=== PATIENT | male | born 1955 | race Asian ===

== ENCOUNTER 2018-10-23 17:45 | Inpatient (IN) | payer OTHER, MEDICAID ==
[~2018-10-23] VITALS: Ht 172.7 cm; Wt 74.8 kg
[2018-10-23 17:45] VITALS: BP_SYST 173
[2018-10-23] MEDS ORDERED: NACL 0.9% 1,000 ML IV ONE (17:54)
[2018-10-23] MEDS ORDERED: cefTRIAXone 1 GM IVPB PREMIX 50 ML IV ONE (18:00)
[2018-10-23] MEDS ORDERED: NS 1000 ML IV.SOLN IV ONE (18:00)
[2018-10-23] MEDS ORDERED: ALBUTEROL SULFATE 0.083% 2.5 MG/3 ML VIAL.NEB IH ONE ×2 (18:00→18:15)
[2018-10-23] MEDS ORDERED: methylPREDNISolone SOD SUCC/PF 62.5 MG/ML VIAL IVP ONE (18:00)
[2018-10-23] MEDS ORDERED: IPRATROPIUM BROM 0.5 MG/2.5 ML VIAL.NEB (ATROVENT) IH ONE ×2 (18:00→18:15)
[2018-10-23] MEDS ORDERED: HYDR-4272 PO (18:25)
[2018-10-23 18:38] LABS: EOSINOPHILS # (AUTO) 0.6 K/uL (0.0-0.4); EOSINOPHILS % (AUTO) 2.7 % (0.0-4.0); HEMOGLOBIN 11.3 g/dL (14.0-18.0); MEAN CORPUSCULAR HEMOGLOBIN 28 pg (27-31); MEAN CORPUSCULAR HGB CONC 33 % (32-36)
[2018-10-23] MEDS ORDERED: LORA-258 PO (18:38)
[2018-10-23] MEDS ORDERED: IPRA3AMP9 INH (18:38)
[2018-10-23] MEDS ORDERED: METO-290 PO (18:38)
[2018-10-23] MEDS ORDERED: PRO40 PO (18:38)
[2018-10-23] MEDS ORDERED: DOCU-144 PO (18:38)
[2018-10-23] MEDS ORDERED: MEGE400O23 PO (18:38)
[2018-10-23] MEDS ORDERED: ZOLP5TAB2 PO (18:38)
[2018-10-23] MEDS ORDERED: FERR-69 PO (18:40)
[2018-10-23 18:43] LABS: BASOPHILS # (AUTO) 0.3 K/uL (0.0-0.2); BASOPHILS % (AUTO) 1.3 % (0.0-2.0); HEMATOCRIT 34.6 % (36-54); LYMPHOCYTES # (AUTO) 4.2 K/uL (1.0-5.5); LYMPHOCYTES % (AUTO) 19.7 % (20.5-51.5); MEAN CORPUSCULAR VOLUME 87 fL (79.0-98.0); MONOCYTES # (AUTO) 1.3 K/uL (0.0-1.0); MONOCYTES % (AUTO) 6.3 % (1.7-9.3); NEUTROPHILS # (AUTO) 14.8 K/uL (1.8-7.7); PLATELET COUNT (AUTO) 322 K/uL (130-430); RED BLOOD CELL COUNT(AUTO) 3.99 MIL/uL (4.2-6.2); RED CELL DISTRIBUTION WIDTH 19.6 % (9.0-15.0); WHITE BLOOD COUNT (AUTO) 21.2 K/uL (4.8-10.8)
[2018-10-23] MEDS ORDERED: CARV3.1246 PO (18:47)
[2018-10-23] MEDS ORDERED: NEPH PO (18:47)
[2018-10-23] MEDS ORDERED: ATOR20TA64 PO (18:47)
[2018-10-23] MEDS ORDERED: ASPI-1153 PO (18:47)
[2018-10-23] MEDS ORDERED: SUCR1TAB78 PO (18:47)
[2018-10-23] MEDS ORDERED: CALC667T5 PO (18:47)
[2018-10-23] MEDS ORDERED: MIRT15TA7 PO (18:47)
[2018-10-23 18:48] LABS: PROTHROMBIN TIME 9.9 SECS (9.5-12.5)
[2018-10-23] MEDS ORDERED: SSREG SUBCUT (18:50)
[2018-10-23 18:57] LABS: CREATININE 7.04 mg/dL (0.55-1.30); POTASSIUM 5.2 mmol/L (3.5-5.1)
[2018-10-23 19:01] LABS: ALBUMIN 2.6 g/dL (3.4-4.8); TOTAL BILIRUBIN 0.5 mg/dL (0.0-1.0)
[2018-10-23 20:00] VITALS: BP_SYST 148
[2018-10-23 20:03] VITALS: BP_SYST 148
[2018-10-23] MEDS ORDERED: MORPHINE 4 MG/ML INJ. SYRINGE IVP PRN ×2 (20:15)
[2018-10-23] MEDS ORDERED: ACETAMINOPHEN 325 MG TABLET PO PRN (20:15)
[2018-10-23] MEDS ORDERED: ZOLPIDEM TARTRATE 5 MG TABLET PO PRN (20:15)
[2018-10-23] MEDS ORDERED: LORazepam 2 MG/ML VIAL IVP PRN (20:15)
[2018-10-23] MEDS ORDERED: INSULIN ASPART 100 UNITS/ML, 10 ML VIAL (NovoLOG) SUBCUT PRN (20:15)
[2018-10-23] MEDS ORDERED: DOCUSATE SODIUM 100 MG CAPSULE PO PRN (20:15)
[2018-10-23] MEDS ORDERED: IPRATROPIUM/ALBUTEROL SULFATE 3 ML AMPUL.NEB (DUONEB) INH PRN (20:15)
[2018-10-23] MEDS ORDERED: DEXTROSE 50% JECT 50 ML DISP.SYRIN IVP PRN (20:15)
[2018-10-23] MEDS ORDERED: MAGNESIUM SULFATE 50 ML IV PRN (20:15)
[2018-10-23] MEDS ORDERED: POTASSIUM CHLORIDE 20 MEQ TAB.PRT.SR PO PRN (20:15)
[2018-10-23] MEDS ORDERED: ONDANSETRON HCL 4 MG/2 ML VIAL IVP PRN (20:15)
[2018-10-23] MEDS: IPRATROPIUM/ALBUTEROL SULFATE 3 ML AMPUL.NEB (DUONEB) INH PRN (20:26)
[2018-10-23] MEDS ORDERED: cloNIDine HCL 0.1 MG TABLET PO PRN (20:30)
[2018-10-23 21:07] VITALS: BP_SYST 148
[2018-10-23] MEDS ORDERED: PIPERACILLIN/TAZOBACTAM 2.25 GM VIAL IV ONE (21:08)
[2018-10-23] MEDS: PIPERACILLIN/TAZO 2.25G/DEX-IS 50 ML IV SCH ×2 (21:17→21:18)
[2018-10-23] MEDS: HEPARIN SODIUM,PORCINE 5000 UNITS/ML VIAL SUBCUT SCH (22:19)
[2018-10-23] MEDS: DOCUSATE SODIUM 100 MG CAPSULE PO SCH (22:21)
[2018-10-23] MEDS: SUCRALFATE 1 GM TABLET PO SCH (22:21)
[2018-10-23] MEDS: MIRTAZAPINE 15 MG TABLET PO SCH (22:23)
[2018-10-23] MEDS: ATORVASTATIN 20 MG TABLET PO SCH (22:23)
[2018-10-23] MEDS: CARVEDILOL 3.125 MG TABLET (COREG) PO SCH (22:24)
[2018-10-24] VITALS: BP_SYST 130
[2018-10-24 01:00] VITALS: BP_SYST 130
[2018-10-24] MEDS: IPRATROPIUM/ALBUTEROL SULFATE 3 ML AMPUL.NEB (DUONEB) INH PRN (03:23)
[2018-10-24] MEDS: SUCRALFATE 1 GM TABLET PO SCH ×2 (06:10→21:11)
[2018-10-24] MEDS: PIPERACILLIN/TAZO 2.25G/DEX-IS 50 ML IV SCH ×3 (06:10→22:00)
[2018-10-24 07:09] LABS: EOSINOPHILS % (AUTO) 0.1 % (0.0-4.0); HEMATOCRIT 30.1 % (36-54); HEMOGLOBIN 10.1 g/dL (14.0-18.0); LYMPHOCYTES # (AUTO) 0.8 K/uL (1.0-5.5); LYMPHOCYTES % (AUTO) 8.2 % (20.5-51.5); MEAN CORPUSCULAR HEMOGLOBIN 29 pg (27-31); MEAN CORPUSCULAR HGB CONC 34 % (32-36); MEAN CORPUSCULAR VOLUME 87 fL (79.0-98.0); MONOCYTES # (AUTO) 0.3 K/uL (0.0-1.0); MONOCYTES % (AUTO) 2.9 % (1.7-9.3); NEUTROPHILS # (AUTO) 8.5 K/uL (1.8-7.7); NEUTROPHILS % (AUTO) 88.8 % (40.0-70.0); PLATELET COUNT (AUTO) 184 K/uL (130-430); RED BLOOD CELL COUNT(AUTO) 3.46 MIL/uL (4.2-6.2); WHITE BLOOD COUNT (AUTO) 9.6 K/uL (4.8-10.8)
[2018-10-24 07:50] VITALS: BP_SYST 122
[2018-10-24 08:05] LABS: CALCIUM 10.8 mg/dL (8.4-11.0); POTASSIUM 5.7 mmol/L (3.5-5.1)
[2018-10-24 08:17] LABS: CREATININE 7.56 mg/dL (0.55-1.30)
[2018-10-24] MEDS: CALCIUM ACETATE 667 MG CAP PO SCH ×3 (08:44→18:41)
[2018-10-24] MEDS: DOCUSATE SODIUM 100 MG CAPSULE PO SCH ×2 (08:45→21:09)
[2018-10-24] MEDS: CARVEDILOL 3.125 MG TABLET (COREG) PO SCH ×2 (08:46→21:10)
[2018-10-24] MEDS: ASPIRIN 81 MG TABLET(ECOTRIN) PO SCH (08:47)
[2018-10-24] MEDS: FERROUS SULFATE 325 MG TABLET.DR PO SCH (08:50)
[2018-10-24] MEDS: HEPARIN SODIUM,PORCINE 5000 UNITS/ML VIAL SUBCUT SCH ×2 (08:53→21:16)
[2018-10-24] MEDS ORDERED: AZITHROMYCIN 250 MG TABLET PO SCH (09:00)
[2018-10-24] MEDS ORDERED: AZITHROMYCIN 250 MG TABLET PO ONE (09:00)
[2018-10-24] MEDS ORDERED: CARVEDILOL 3.125 MG TABLET (COREG) PO SCH (09:00)
[2018-10-24 11:26] VITALS: BP_SYST 128
[2018-10-24] MEDS: IPRATROPIUM BROM 0.5 MG/2.5 ML VIAL.NEB (ATROVENT) INH SCH ×2 (13:43→20:36)
[2018-10-24] MEDS: ALBUTEROL SULFATE 0.083% 2.5 MG/3 ML VIAL.NEB INH SCH ×2 (13:43→20:35)
[2018-10-24 16:44] VITALS: BP_SYST 118
[2018-10-24] MEDS ORDERED: ALTEPLASE 2 MG VIAL MC ONE (17:00)
[2018-10-24 20:30] VITALS: BP_SYST 127
[2018-10-24] MEDS: MIRTAZAPINE 15 MG TABLET PO SCH (21:09)
[2018-10-24] MEDS: ATORVASTATIN 20 MG TABLET PO SCH (21:10)
[2018-10-25 00:34] VITALS: BP_SYST 117
[2018-10-25] MEDS: ALBUTEROL SULFATE 0.083% 2.5 MG/3 ML VIAL.NEB INH SCH ×4 (01:42→20:16)
[2018-10-25] MEDS: IPRATROPIUM BROM 0.5 MG/2.5 ML VIAL.NEB (ATROVENT) INH SCH ×4 (01:43→20:16)
[2018-10-25] MEDS: PIPERACILLIN/TAZO 2.25G/DEX-IS 50 ML IV SCH ×3 (05:48→22:38)
[2018-10-25] MEDS: SUCRALFATE 1 GM TABLET PO SCH ×2 (06:21→20:14)
[2018-10-25 06:58] LABS: EOSINOPHILS % (AUTO) 0.2 % (0.0-4.0); HEMATOCRIT 29.8 % (36-54); HEMOGLOBIN 9.6 g/dL (14.0-18.0); LYMPHOCYTES # (AUTO) 0.9 K/uL (1.0-5.5); LYMPHOCYTES % (AUTO) 12.8 % (20.5-51.5); MEAN CORPUSCULAR HEMOGLOBIN 28 pg (27-31); MEAN CORPUSCULAR HGB CONC 32 % (32-36); MEAN CORPUSCULAR VOLUME 87 fL (79.0-98.0); MONOCYTES # (AUTO) 0.5 K/uL (0.0-1.0); NEUTROPHILS # (AUTO) 5.7 K/uL (1.8-7.7); PLATELET COUNT (AUTO) 190 K/uL (130-430); RED BLOOD CELL COUNT(AUTO) 3.42 MIL/uL (4.2-6.2); RED CELL DISTRIBUTION WIDTH 20.1 % (9.0-15.0); WHITE BLOOD COUNT (AUTO) 7.1 K/uL (4.8-10.8)
[2018-10-25 07:28] LABS: ALBUMIN 2.3 g/dL (3.4-4.8); CALCIUM 10.4 mg/dL (8.4-11.0); CREATININE 5.79 mg/dL (0.55-1.30); POTASSIUM 4.4 mmol/L (3.5-5.1); TOTAL BILIRUBIN 0.4 mg/dL (0.0-1.0)
[2018-10-25 08:00] VITALS: BP_SYST 134
[2018-10-25] MEDS: AZITHROMYCIN 250 MG TABLET PO SCH (08:47)
[2018-10-25] MEDS: ASPIRIN 81 MG TABLET(ECOTRIN) PO SCH (08:47)
[2018-10-25] MEDS: FERROUS SULFATE 325 MG TABLET.DR PO SCH (08:47)
[2018-10-25] MEDS: DOCUSATE SODIUM 100 MG CAPSULE PO SCH ×2 (08:47→20:14)
[2018-10-25] MEDS: CALCIUM ACETATE 667 MG CAP PO SCH ×4 (08:47→17:40)
[2018-10-25] MEDS: CARVEDILOL 3.125 MG TABLET (COREG) PO SCH ×2 (08:48→20:14)
[2018-10-25] MEDS: HEPARIN SODIUM,PORCINE 5000 UNITS/ML VIAL SUBCUT SCH ×2 (08:54→20:27)
[2018-10-25] MEDS: MUPIROCIN 2% TOPICAL OINTMENT 22 GM NS PRN ×2 (11:03→11:07)
[2018-10-25] MEDS: guaiFENesin 200 MG/10 ML UDC PO PRN (11:32)
[2018-10-25 12:02] VITALS: BP_SYST 115
[2018-10-25 16:02] VITALS: BP_SYST 137
[2018-10-25 20:00] VITALS: BP_SYST 129
[2018-10-25] MEDS: MIRTAZAPINE 15 MG TABLET PO SCH (20:13)
[2018-10-25] MEDS: ATORVASTATIN 20 MG TABLET PO SCH (20:13)
[2018-10-26] MEDS: ALBUTEROL SULFATE 0.083% 2.5 MG/3 ML VIAL.NEB INH SCH ×3 (01:34→12:02)
[2018-10-26] MEDS: IPRATROPIUM BROM 0.5 MG/2.5 ML VIAL.NEB (ATROVENT) INH SCH ×3 (01:35→12:02)
[2018-10-26 01:38] VITALS: BP_SYST 129
[2018-10-26] MEDS: PIPERACILLIN/TAZO 2.25G/DEX-IS 50 ML IV SCH ×2 (05:25→14:45)
[2018-10-26] MEDS: SUCRALFATE 1 GM TABLET PO SCH (06:24)
[2018-10-26 08:00] VITALS: BP_SYST 147
[2018-10-26 08:25] LABS: POTASSIUM 4.4 mmol/L (3.5-5.1)
[2018-10-26 08:26] LABS: CALCIUM 9.7 mg/dL (8.4-11.0); CREATININE 7.17 mg/dL (0.55-1.30)
[2018-10-26 08:46] LABS: HEMATOCRIT 28.9 % (36-54); HEMOGLOBIN 9.5 g/dL (14.0-18.0); LYMPHOCYTES % (AUTO) 17.4 % (20.5-51.5); MEAN CORPUSCULAR HEMOGLOBIN 29 pg (27-31); MEAN CORPUSCULAR HGB CONC 33 % (32-36); MEAN CORPUSCULAR VOLUME 87 fL (79.0-98.0); MONOCYTES % (AUTO) 8.6 % (1.7-9.3); NEUTROPHILS % (AUTO) 71.4 % (40.0-70.0); PLATELET COUNT (AUTO) 181 K/uL (130-430); RED BLOOD CELL COUNT(AUTO) 3.32 MIL/uL (4.2-6.2); WHITE BLOOD COUNT (AUTO) 7.4 K/uL (4.8-10.8)
[2018-10-26 08:47] LABS: BASOPHILS % (AUTO) 0.3 % (0.0-2.0); EOSINOPHILS # (AUTO) 0.2 K/uL (0.0-0.4); EOSINOPHILS % (AUTO) 2.3 % (0.0-4.0); LYMPHOCYTES # (AUTO) 1.3 K/uL (1.0-5.5); MONOCYTES # (AUTO) 0.6 K/uL (0.0-1.0); NEUTROPHILS # (AUTO) 5.3 K/uL (1.8-7.7)
[2018-10-26] MEDS: guaiFENesin 200 MG/10 ML UDC PO PRN (09:36)
[2018-10-26] MEDS: DOCUSATE SODIUM 100 MG CAPSULE PO SCH (09:36)
[2018-10-26] MEDS: AZITHROMYCIN 250 MG TABLET PO SCH (09:36)
[2018-10-26] MEDS: ASPIRIN 81 MG TABLET(ECOTRIN) PO SCH (09:37)
[2018-10-26] MEDS: FERROUS SULFATE 325 MG TABLET.DR PO SCH (09:37)
[2018-10-26] MEDS: CARVEDILOL 3.125 MG TABLET (COREG) PO SCH (09:38)
[2018-10-26] MEDS: CALCIUM ACETATE 667 MG CAP PO SCH ×2 (09:40→12:05)
[2018-10-26] MEDS: HEPARIN SODIUM,PORCINE 5000 UNITS/ML VIAL SUBCUT SCH (09:40)
[2018-10-26] MEDS: MUPIROCIN 2% TOPICAL OINTMENT 22 GM NS PRN (09:43)
[2018-10-26 12:00] VITALS: BP_SYST 147; BP_SYST 155
[2018-10-26 12:44] VITALS: BP_SYST 133
[2018-10-26 16:52] VITALS: BP_SYST 143
== END 2018-10-26 16:40 | DRG 871 ==
LOC: SED 17:45 → STU 19:14
PROVIDERS: ADMIT General Practice; ATTEND General Practice
PROC: 5A1D70Z Performance of Urinary Filtration, Intermittent, Less than 6 Hours Per Day (ICD-10-PCS; principal; 2018-10-24)
PROC: 5A1D70Z Performance of Urinary Filtration, Intermittent, Less than 6 Hours Per Day (ICD-10-PCS; 2018-10-26)
DX: A41.9 Sepsis, unspecified organism (principal); J69.0 Pneumonitis due to inhalation of food and vomit; N17.0 Acute kidney failure with tubular necrosis; N18.6 End stage renal disease; I21.A1 Myocardial infarction type 2; I50.43 Acute on chronic combined systolic (congestive) and diastolic (congestive) heart failure; J96.01 Acute respiratory failure with hypoxia; I13.2 Hypertensive heart and chronic kidney disease with heart failure and with stage 5 chronic kidney disease, or end stage renal disease; I42.0 Dilated cardiomyopathy; E11.22 Type 2 diabetes mellitus with diabetic chronic kidney disease; E11.51 Type 2 diabetes mellitus with diabetic peripheral angiopathy without gangrene; E78.5 Hyperlipidemia, unspecified; E87.5 Hyperkalemia; D63.1 Anemia in chronic kidney disease; I25.10 Atherosclerotic heart disease of native coronary artery without angina pectoris; J20.9 Acute bronchitis, unspecified; J44.9 Chronic obstructive pulmonary disease, unspecified; K21.9 Gastro-esophageal reflux disease without esophagitis; Z79.4 Long term (current) use of insulin; Z79.82 Long term (current) use of aspirin; Z79.899 Other long term (current) drug therapy; Z99.2 Dependence on renal dialysis
CPT/HCPCS: 36415; 36600; 71045; 80048; 80053; 82150-TC; 82550-TC; 82803-TC; 82962; 83036; 83605; 83690-TC; 83735-TC; 83880; 84484; 85025; 85610-TC; 85730-TC; 86710; 87040-TC; 87081; 90935; 90937; 93005; 93306; 94640; 94760; 96365; 96375; 99285; G0378; J0696; J1644; J2543; J2930; J2997; J7030; J7060; J7613; J7620; Q0144